=== PATIENT | female | born 1995 | race Caucasian/White ===

== ENCOUNTER 2020-02-10 01:35 | Emergency (ER) | payer SELFPAY ==
[2020-02-10 01:50] VITALS: BP 153/90
--- NOTE | 2020-02-10 02:33 | XRay Report ---
Right foot 3 views INDICATION: Right foot pain IMPRESSION: No fracture or subluxation of the right foot is identified. Signer Name: Noe Garcia MD Signed: 02/10/2020 2:28 AM Workstation Name: [id number]
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
== END 2020-02-10 03:29 | disposition left against medical advice (07) ==
LOC: ED 01:35
DX: S99.921A Unspecified injury of right foot, initial encounter (principal); W22.8XXA Striking against or struck by other objects, initial encounter; Y93.89 Activity, other specified; Y92.89 Other specified places as the place of occurrence of the external cause; Y99.8 Other external cause status
CPT/HCPCS: 99283